=== PATIENT | female | born 1965 | race Hispanic/Latino ===

== ENCOUNTER 2017-10-20 01:52 | Emergency (ER) | payer OTHER ==
--- NOTE | 2017-10-20 02:19 | EDPHYS ---
Physician Documentation [facility] Name: Yesy Elder Age: 52 yrs Sex: Female : 1965 Arrival Date: 10/20/2017 Time: 01:56 Bed 15 Private MD: ED Physician Talib Bustillos HPI: 10/20 02:12 This 52 yrs old Female presents to ER via Ambulatory with complaints of pkl Allergic Reaction. 02:12 The patient's rash thought to be caused by an unknown cause. The rash is located on the pkl left upper posterior thigh. The rash can be described as patchy, vesicular. Onset: The symptoms/episode began/occurred 3 day(s) ago. Associated signs and symptoms: Pertinent positives: itching. Historical: - Allergies: 02:05 Codeine; aa1 - Home Meds: 02:05 Lisinopril Oral [Active]; aa1 - PMHx: 02:05 Hypertension; aa1 - PSHx: 02:05 Hysterectomy; Hernia repair; Cholecystectomy; aa1 - Immunization history:: Flu vaccine is not up to date. - Social history:: Smoking status: Patient/guardian denies using tobacco. ROS: 02:12 Eyes: Negative for injury, pain, redness, and discharge, ENT: Negative for injury, pkl pain, and discharge, Neck: Negative for injury, pain, and swelling, Cardiovascular: Negative for chest pain, palpitations, and edema, Respiratory: Negative for shortness of breath, cough, wheezing, and pleuritic chest pain, Abdomen/GI: Negative for abdominal pain, nausea, vomiting, diarrhea, and constipation, Back: Negative for injury and pain, : Negative for injury, bleeding, discharge, and swelling, MS/Extremity: Negative for injury and deformity. 02:12 Skin: Positive for rash, of the left upper posterior thigh. 02:12 Neuro: Negative for altered mental status. Exam: 02:12 Head/Face: Normocephalic, atraumatic. Eyes: Pupils equal round and reactive to light, pkl extra-ocular motions intact. Lids and lashes normal. Conjunctiva and sclera are non-icteric and not injected. Cornea within normal limits. Periorbital areas with no swelling, redness, or edema. ENT: Nares patent. No nasal discharge, no septal abnormalities noted. Tympanic membranes are normal and external auditory canals are clear. Oropharynx with no redness, swelling, or masses, exudates, or evidence of obstruction, uvula midline. Mucous membranes moist. Neck: Trachea midline, no thyromegaly or masses palpated, and no cervical lymphadenopathy. Supple, full range of motion without nuchal rigidity, or vertebral point tenderness. No Meningismus. Chest/axilla: Normal chest wall appearance and motion. Nontender with no deformity. No lesions are appreciated. Cardiovascular: Regular rate and rhythm with a normal S1 and S2. No gallops, murmurs, or rubs. Normal PMI, no JVD. No pulse deficits. Respiratory: Lungs have equal breath sounds bilaterally, clear to auscultation and percussion. No rales, rhonchi or wheezes noted. No increased work of breathing, no retractions or nasal flaring. Abdomen/GI: Soft, non-tender, with normal bowel sounds. No distension or tympany. No guarding or rebound. No evidence of tenderness throughout. Back: No spinal tenderness. No costovertebral tenderness. Full range of motion. MS/ Extremity: Pulses equal, no cyanosis. Neurovascular intact. Full, normal range of motion. Neuro: Awake and alert, GCS 15, oriented to person, place, time, and situation. Cranial nerves II-XII grossly intact. Motor strength 5/5 in all extremities. Sensory grossly intact. Cerebellar exam normal. Normal gait. 02:12 Skin: rash can be described as vesicular, on the left upper posterior thigh. Vital Signs: 02:05 BP 193 / 84; Pulse 67; Resp 16; Temp 98.1; Pulse Ox 100% on R/A; Weight 61.23 kg; aa1 Height 5 ft. 0 in. (152.40 cm); Pain 0/10; 02:07 BP 170 / 77; kb1 02:05 Body Mass Index 26.37 (61.23 kg, 152.40 cm) aa1 MDM: 01:57 Patient medically screened. pkl 02:12 Data reviewed: vital signs, nurses notes. pkl Administered Medications: 02:29 Drug: ZoviRAX 800 mg Route: PO; kb1 02:29 Follow up: Response: Medication administered at discharge. kb1 Disposition: 10/20/17 02:18 Discharged to Home. Impression: Rash left upper posterior thigh. Possible herpes zoster. - Condition is Stable. - Prescriptions for Zovirax 800 mg Oral Tablet - take 1 tablet by ORAL route 4 times per day for 5 days; 20 tablet. - Work release form, Medication Reconciliation Form, Thank You Letter, Antibiotic Education, Prescription Opioid Use form. - Follow up: Private Physician; When: 2 - 3 days; Reason: Re-evaluation by your physician. - Problem is new. - Symptoms are unchanged. Signatures: Lillian Durand RN RN aa1 Talib Bustillos MD MD pkl Zabrina Gallegos RN RN kb1
--- NOTE | 2017-10-20 02:19 | ER ---
Nurse's Notes [facility] Name: Yesy Elder Age: 52 yrs Sex: Female : 1965 Arrival Date: 10/20/2017 Time: 01:56 Bed 15 Private MD: Diagnosis: Rash left upper posterior thigh. Possible herpes zoster Presentation: 10/20 02:04 Presenting complaint: Patient states: rash to back of L leg and itching all over. aa1 Transition of care: patient was not received from another setting of care. Onset: The symptoms/episode began/occurred acutely. Anaphylaxis evaluation, no signs or symptoms of anaphylaxis were noted. Onset of symptoms was October 19, 2017. Care prior to arrival: None. 02:04 Method Of Arrival: Ambulatory aa1 02:04 Acuity: JOSE 5 aa1 Triage Assessment: 02:05 General: Appears in no apparent distress. comfortable, Behavior is calm, cooperative, aa1 appropriate for age. Pain: Denies pain. Historical: - Allergies: 02:05 Codeine; aa1 - Home Meds: 02:05 Lisinopril Oral [Active]; aa1 - PMHx: 02:05 Hypertension; aa1 - PSHx: 02:05 Hysterectomy; Hernia repair; Cholecystectomy; aa1 - Immunization history:: Flu vaccine is not up to date. - Social history:: Smoking status: Patient/guardian denies using tobacco. Screenin:08 Abuse screen: Denies threats or abuse. Nutritional screening: No deficits noted. kb1 Tuberculosis screening: No symptoms or risk factors identified. Fall Risk None identified. Assessment: 02:08 General: Appears in no apparent distress. Behavior is calm, cooperative. Neuro: Level kb1 of Consciousness is awake, alert, obeys commands, Oriented to person, place, time, situation. Cardiovascular: Patient's skin is warm and dry. Respiratory: Airway is patent Respiratory effort is even, unlabored, Respiratory pattern is regular, symmetrical, Breath sounds are clear. GI: No signs and/or symptoms were reported involving the gastrointestinal system. : No signs and/or symptoms were reported regarding the genitourinary system. Vital Signs: 02:05 BP 193 / 84; Pulse 67; Resp 16; Temp 98.1; Pulse Ox 100% on R/A; Weight 61.23 kg; aa1 Height 5 ft. 0 in. (152.40 cm); Pain 0/10; 02:07 BP 170 / 77; kb1 02:05 Body Mass Index 26.37 (61.23 kg, 152.40 cm) aa1 ED Course: 01:56 Patient arrived in ED. al2 01:57 Talib Bustillos MD is Attending Physician. pkl 01:58 Zabrina Gallegos, RN is Primary Nurse. kb1 02:05 Triage completed. aa1 02:05 Arm band placed on right wrist. Patient placed in an exam room, on a stretcher. aa1 02:08 Patient has correct armband on for positive identification. Call light in reach. Side kb1 rails up X 1. 02:08 No provider procedures requiring assistance completed. Patient did not have IV access kb1 during this emergency room visit. Administered Medications: 02:29 Drug: ZoviRAX 800 mg Route: PO; kb1 02:29 Follow up: Response: Medication administered at discharge. kb1 Outcome: 02:18 Discharge ordered by . pkl 02:28 Discharged to home ambulatory. kb1 02:28 Condition: stable 02:28 Discharge instructions given to patient, Instructed on discharge instructions, follow up and referral plans. medication usage, Demonstrated understanding of instructions, follow-up care, medications, Prescriptions given X 1. 02:31 Patient left the ED. kb1 Signatures: Lillian Durand RN RN aa1 Talib Bustillos MD MD pk Aurea Bower al2 Zabrina Gallegos RN RN kb1
[2017-10-20 02:36] VITALS: BP 193/84; TEMP 98.1; O2SAT 100
[2017-10-20] MEDS ORDERED: ACYCLOVIR 400 MG TABLET ONE (02:37)
== END 2017-10-20 02:31 | disposition home or self-care (01) ==
LOC: ER 01:52
DX: R21 Rash and other nonspecific skin eruption (principal); I10 Essential (primary) hypertension; Z88.5 Allergy status to narcotic agent
CPT/HCPCS: 99283

== ENCOUNTER 2019-07-01 20:17 | Emergency (ER) | payer OTHER ==
[2019-07-01 21:34] LABS: Urine Blood 2+ (NEG); Urine Glucose NEGATIVE (NEG); Urine Protein NEGATIVE (NEG); Urine Specific Gravity 1.025 (1.005-1.030); Urine pH 5.5 (5.0-7.0)
[2019-07-01] MEDS ORDERED: NA CHLORIDE 0.9% 1,000 ML ONE (21:55)
[2019-07-01] MEDS ORDERED: ONDANSETRON 4 MG/2 ML VIAL ONE (21:55)
[2019-07-01 22:30] LABS: Absolute Lymphocytes (CBC) 1.5 K/uL (0.7-4.9); Basophils % 0.4 % (0-1.3); Hematocrit 40.8 % (36.0-45.0); Lymphocytes % 16.4 % (15.3-44.8); MPV 9.2 fL (7.6-11.3); RBC Red Blood Cell Count 4.51 M/uL (3.86-4.86)
[2019-07-01 22:56] LABS: ALT/SGPT 44 U/L (12-78); AST/SGOT 26 U/L (15-37); Albumin 3.8 g/dL (3.4-5.0); Alkaline Phosphatase 106 U/L (45-117); BUN Blood Urea Nitrogen 21 mg/dL (7-18); Bicarbonate 30 mmol/L (21-32); Bilirubin Direct < 0.1 mg/dL (0-0.2); Bilirubin Total 0.4 mg/dL (0.2-1.0); Glucose Level 97 mg/dL (74-106); Lipase 74 U/L (73-393); Potassium 3.2 mmol/L (3.5-5.1); Protein, Total 7.9 g/dL (6.4-8.2); Sodium Level 140 mmol/L (136-145)
--- NOTE | 2019-07-01 23:37 | EDPHYS ---
Physician Documentation [facility] Name: Yesy Elder Age: 54 yrs Sex: Female : 1965 Arrival Date: 07/01/2019 Time: 20:19 Bed 25 Private MD: ED Physician Zaid Abarca HPI: 07/01 21:49 This 54 yrs old Female presents to ER via Ambulatory with complaints of choco Vomiting. 21:49 The patient presents to the emergency department with nausea, vomiting, diarrhea. choco Onset: The symptoms/episode began/occurred 3 day(s) ago. Possible causes: unknown. The symptoms are aggravated by nothing. The symptoms are alleviated by nothing. Associated signs and symptoms: The patient has no apparent associated signs or symptoms. Severity of symptoms: At their worst the symptoms were mild in the emergency department the symptoms are unchanged. The patient has not experienced similar symptoms in the past. 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 - Social history:: Smoking status: Patient/guardian denies using tobacco. - Ebola Screening: : Patient denies exposure to infectious person Patient denies travel to an Ebola-affected area in the 21 days before illness onset. - Family history:: not pertinent. ROS: 21:49 Constitutional: Negative for fever, chills, and weight loss, Eyes: Negative for injury, choco pain, redness, and discharge, ENT: Negative for injury, pain, and discharge, Neck: Negative for injury, pain, and swelling, Cardiovascular: Negative for chest pain, palpitations, and edema, Respiratory: Negative for shortness of breath, cough, wheezing, and pleuritic chest pain, : Negative for injury, bleeding, discharge, and swelling, MS/Extremity: Negative for injury and deformity, Skin: Negative for injury, rash, and discoloration, Neuro: Negative for headache, weakness, numbness, tingling, and seizure, Psych: Negative for depression, anxiety, suicide ideation, homicidal ideation, and hallucinations, Allergy/Immunology: Negative for hives, rash, and allergies, Endocrine: Negative for neck swelling, polydipsia, polyuria, polyphagia, and marked weight changes, Hematologic/Lymphatic: Negative for swollen nodes, abnormal bleeding, and unusual bruising. 21:49 Abdomen/GI: Positive for nausea and vomiting, nausea, vomiting, and diarrhea, nausea, vomiting, diarrhea. 21:49 Back: Positive for pain at rest, of the lumbar area. Exam: 21:49 Constitutional: This is a well developed, well nourished patient who is awake, alert, choco and in no acute distress. Head/Face: Normocephalic, atraumatic. Eyes: Pupils equal round and reactive to light, extra-ocular motions intact. Lids and lashes normal. Conjunctiva and sclera are non-icteric and not injected. Cornea within normal limits. Periorbital areas with no swelling, redness, or edema. ENT: Nares patent. No nasal discharge, no septal abnormalities noted. Tympanic membranes are normal and external auditory canals are clear. Oropharynx with no redness, swelling, or masses, exudates, or evidence of obstruction, uvula midline. Mucous membranes moist. Neck: Trachea midline, no thyromegaly or masses palpated, and no cervical lymphadenopathy. Supple, full range of motion without nuchal rigidity, or vertebral point tenderness. No Meningismus. Chest/axilla: Normal chest wall appearance and motion. Nontender with no deformity. No lesions are appreciated. Cardiovascular: Regular rate and rhythm with a normal S1 and S2. No gallops, murmurs, or rubs. Normal PMI, no JVD. No pulse deficits. Respiratory: Lungs have equal breath sounds bilaterally, clear to auscultation and percussion. No rales, rhonchi or wheezes noted. No increased work of breathing, no retractions or nasal flaring. Abdomen/GI: Soft, non-tender, with normal bowel sounds. No distension or tympany. No guarding or rebound. No evidence of tenderness throughout. Skin: Warm, dry with normal turgor. Normal color with no rashes, no lesions, and no evidence of cellulitis. MS/ Extremity: Pulses equal, no cyanosis. Neurovascular intact. Full, normal range of motion. Neuro: Awake and alert, GCS 15, oriented to person, place, time, and situation. Cranial nerves II-XII grossly intact. Motor strength 5/5 in all extremities. Sensory grossly intact. Cerebellar exam normal. Normal gait. Psych: Awake, alert, with orientation to person, place and time. Behavior, mood, and affect are within normal limits. 21:49 Back: pain, that is very mild, ROM is normal, normal spinal alignment noted, CVA tenderness, is absent, muscle spasm, is not present. Vital Signs: 20:23 BP 152 / 88; Pulse 76; Resp 18; Temp 97.2; Pulse Ox 97% on R/A; Weight 63.5 kg; Height aa1 5 ft. 0 in. (152.40 cm); Pain 7/10; 22:28 BP 141 / 82; Pulse 64; Resp 18; Pulse Ox 95% on R/A; aj1 23:10 BP 131 / 75; Pulse 68; Resp 18; Pulse Ox 100% on R/A; aj1 20:23 Body Mass Index 27.34 (63.50 kg, 152.40 cm) aa1 MDM: 21:06 Patient medically screened. [facility] 21:23 Patient medically screened. [facility] 21:49 Data reviewed: vital signs, nurses notes, lab test result(s). [facility] 07/01 21:30 Order name: Urine Dipstick--Ancillary (enter results); Complete Time: 21:48 [facility] 07/01 21:30 Order name: Flu; Complete Time: 23:23 [facility] 07/01 21:49 Order name: Basic Metabolic Panel; Complete Time: 23:23 [facility] 07/01 21:49 Order name: CBC with Diff; Complete Time: 23:23 [facility] 07/01 21:49 Order name: Creatinine for Radiology; Complete Time: 23:23 [facility] 07/01 21:49 Order name: Hepatic Function; Complete Time: 23:23 [facility] 07/01 21:49 Order name: Lipase; Complete Time: 23:23 [facility] 07/01 21:49 Order name: IV Saline Lock; Complete Time: 22:17 [facility] 07/01 21:49 Order name: Labs collected and sent; Complete Time: 22:17 [facility] 07/01 21:49 Order name: EKG; Complete Time: 21:50 [facility] 07/01 21:49 Order name: EKG - Nurse/Tech; Complete Time: 22:08 [facility] Administered Medications: 22:17 Drug: Zofran 4 mg Route: IVP; Site: left antecubital; aj1 23:56 Follow up: Response: No adverse reaction aj1 22:18 Drug: NS 0.9% 1000 ml Route: IV; Rate: 1 bolus; Site: left antecubital; aj1 23:56 Follow up: IV Status: Completed infusion; IV Intake: 1000ml aj1 23:56 Drug: Potassium Effervescent Tablet 25 mEq Route: PO; aj1 23:57 Follow up: Response: No adverse reaction aj Disposition: 07/01/19 23:36 Discharged to Home. Impression: Vomiting, Diarrhea, unspecified, Low back pain, Hypokalemia. - Condition is Stable. - Discharge Instructions: Food Choices to Help Relieve Diarrhea, Adult, Back Pain, Adult, Diarrhea, Adult, Potassium Content of Foods, Musculoskeletal Pain, Nausea and Vomiting, Adult, Nausea and Vomiting, Adult, [id number], Back Pain, Adult, Qjpw-xx-Mgha, Diarrhea, Adult, Mlye-ew-Cbbb, Hypokalemia. - Prescriptions for Bentyl 20 mg Oral Tablet - take 1 tablet by ORAL route every 6 hours As needed; 20 tablet. Pepcid 20 mg Oral Tablet - take 1 tablet by ORAL route every 12 hours for 10 days; 20 tablet. Zofran 4 mg Oral Tablet - take 1 tablet by ORAL route every 12 hours As needed; 20 tablet. - Medication Reconciliation Form, Thank You Letter, Antibiotic Education, Prescription Opioid Use, Work release form form. - Follow up: Private Physician; When: As needed; Reason: Recheck today's complaints, Re-evaluation by your physician. - Problem is new. - Symptoms have improved. Signatures: Dispatcher [employer] [facility] Meri Medina RN RN aj1 Lillian Rocha RN RN aa1 Zaid Abarca MD MD cha Corrections: (The following items were deleted from the chart) 23:58 23:36 07/01/2019 23:36 Discharged to Home. Impression: Vomiting; Diarrhea, unspecified; aj1 Low back pain; Hypokalemia. Condition is Stable. Discharge Instructions: Food Choices to Help Relieve Diarrhea, Adult, Back Pain, Adult, Diarrhea, Adult, Musculoskeletal Pain, Nausea and Vomiting, Adult, Nausea and Vomiting, Adult, Xhhd-[id number], Back Pain, Adult, Robp-[id number], Diarrhea, Adult, Mvjt-le-Wldj. Prescriptions for Bentyl 20 mg Oral Tablet - take 1 tablet by ORAL route every 6 hours As needed; 20 tablet, Pepcid 20 mg Oral Tablet - take 1 tablet by ORAL route every 12 hours for 10 days; 20 tablet, Zofran 4 mg Oral Tablet - take 1 tablet by ORAL route every 12 hours As needed; 20 tablet. and Forms are Medication Reconciliation Form, Thank You Letter, Antibiotic Education, Prescription Opioid Use. Follow up: Private Physician; When: As needed; Reason: Recheck today's complaints, Re-evaluation by your physician. Problem is new. Symptoms have improved. choco
--- NOTE | 2019-07-01 23:37 | ER ---
Nurse's Notes [facility] Name: Yesy Elder Age: 54 yrs Sex: Female : 1965 Arrival Date: 07/01/2019 Time: 20:19 Bed 25 Private MD: Diagnosis: Vomiting;Diarrhea, unspecified;Low back pain;Hypokalemia Presentation: 07/01 20:22 Presenting complaint: Patient states: V/D x 3 days and also reports low back pain. aa1 Transition of care: patient was not received from another setting of care. Onset of symptoms was June 28, 2019. Risk Assessment: Do you want to hurt yourself or someone else? Patient reports no desire to harm self or others. Initial Sepsis Screen: Does the patient meet any 2 criteria? No. Patient's initial sepsis screen is negative. Does the patient have a suspected source of infection? No. Patient's initial sepsis screen is negative. Care prior to arrival: None. 20:22 Method Of Arrival: Ambulatory aa1 20:22 Acuity: JOSE 3 aa1 Triage Assessment: 20:23 General: Appears in no apparent distress. comfortable, Behavior is calm, cooperative, aa1 appropriate for age. 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 - Social history:: Smoking status: Patient/guardian denies using tobacco. - Ebola Screening: : Patient denies exposure to infectious person Patient denies travel to an Ebola-affected area in the 21 days before illness onset. - Family history:: not pertinent. Screenin:25 Abuse screen: Denies threats or abuse. Denies injuries from another. Nutritional aj1 screening: No deficits noted. Tuberculosis screening: No symptoms or risk factors identified. 23:57 Fall Risk None identified. aj1 Assessment: 21:25 General: Appears in no apparent distress. comfortable, Behavior is calm, cooperative, aj1 appropriate for age. Pain: Complains of pain in lumbar area Pain does not radiate. Neuro: Level of Consciousness is awake, alert, obeys commands, Oriented to person, place, time, situation. Cardiovascular: Patient's skin is warm and dry. Respiratory: Airway is patent Respiratory effort is even, unlabored, Respiratory pattern is regular, symmetrical. GI: Abdomen is non-distended, Bowel sounds present X 4 quads. Abd is soft and non tender X 4 quads. Reports diarrhea, nausea, vomiting. : No signs and/or symptoms were reported regarding the genitourinary system. EENT: No signs and/or symptoms were reported regarding the EENT system. Derm: No signs and/or symptoms reported regarding the dermatologic system. Skin is pink, warm \T\ dry. normal. Musculoskeletal: No signs and/or symptoms reported regarding the musculoskeletal system. Circulation, motion, and sensation intact. 22:28 Reassessment: Patient appears in no apparent distress at this time. No changes from aj1 previously documented assessment. Patient and/or family updated on plan of care and expected duration. Pain level reassessed. Patient is alert, oriented x 3, equal unlabored respirations, skin warm/dry/pink. 23:10 Reassessment: Patient appears in no apparent distress at this time. No changes from aj1 previously documented assessment. Patient and/or family updated on plan of care and expected duration. Pain level reassessed. Patient is alert, oriented x 3, equal unlabored respirations, skin warm/dry/pink. Vital Signs: 20:23 BP 152 / 88; Pulse 76; Resp 18; Temp 97.2; Pulse Ox 97% on R/A; Weight 63.5 kg; Height aa1 5 ft. 0 in. (152.40 cm); Pain 7/10; 22:28 BP 141 / 82; Pulse 64; Resp 18; Pulse Ox 95% on R/A; aj1 23:10 BP 131 / 75; Pulse 68; Resp 18; Pulse Ox 100% on R/A; aj1 20:23 Body Mass Index 27.34 (63.50 kg, 152.40 cm) aa1 ED Course: 20:19 Patient arrived in ED. as 20:23 Triage completed. aa1 20:23 Arm band placed on right wrist. Patient placed in waiting room, Patient notified of aa1 wait time. 21:00 Meri Medina RN is Primary Nurse. aj1 21:06 Zaid Abarca MD is Attending Physician. [facility] 21:25 Patient has correct armband on for positive identification. Bed in low position. Call aj1 light in reach. Side rails up X 1. 21:25 No provider procedures requiring assistance completed. aj1 22:09 EKG done, by ED staff, reviewed by Zaid Abarca MD. jp3 22:18 Inserted saline lock: 22 gauge in left antecubital area, using aseptic technique. Blood aj1 collected. 23:57 IV discontinued, intact, bleeding controlled, No redness/swelling at site. Pressure aj1 dressing applied. Administered Medications: 22:17 Drug: Zofran 4 mg Route: IVP; Site: left antecubital; aj1 23:56 Follow up: Response: No adverse reaction aj1 22:18 Drug: NS 0.9% 1000 ml Route: IV; Rate: 1 bolus; Site: left antecubital; aj1 23:56 Follow up: IV Status: Completed infusion; IV Intake: 1000ml aj1 23:56 Drug: Potassium Effervescent Tablet 25 mEq Route: PO; aj1 23:57 Follow up: Response: No adverse reaction aj1 Intake: 23:56 IV: 1000ml; Total: 1000ml. aj1 Outcome: 23:36 Discharge ordered by . [facility] 23:57 Discharged to home ambulatory. aj1 23:57 Condition: good 23:57 Discharge instructions given to patient, family, Instructed on discharge instructions, follow up and referral plans. medication usage, Demonstrated understanding of instructions, follow-up care, medications. 23:58 Patient left the ED. aj1 Signatures: Meri Medina RN RN aj1 Lillian Rocha RN RN aa1 Zaid Abarca MD MD cha Martinez, Amelia as Pisarski, Jacob jp3
[2019-07-01] MEDS ORDERED: POTASSIUM 25 MEQ EFFERV TAB ONE (23:41)
[2019-07-02 01:28] VITALS: TEMP 97.2
[2019-07-02 01:30] VITALS: BP 131/75; O2SAT 100
--- NOTE | 2019-07-02 08:57 | EKG ---
Test Date: 2019-07-01 Test Time: 22:06:03 [place]: SANDY MEASUREMENT RESULTS: Intervals: Rate: 60 UT: 142 QRSD: 84 QT: 388 QTc: 388 [place]: P: 36 UT: 142 QRS: 68 T: -26 INTERPRETIVE STATEMENTS: Normal sinus rhythm T wave abnormality, consider inferior ischemia T wave abnormality, consider anterolateral ischemia Abnormal ECG Compared to ECG 04/30/2016 06:38:44 Possible ischemia now present Sinus bradycardia no longer present T-wave abnormality still present Electronically Signed On 07-02-19 08:56:29 [employer] by Tyrel Cooper
== END 2019-07-01 23:58 | disposition home or self-care (01) ==
LOC: ER 20:17
DX: E87.6 Hypokalemia (principal); M54.5 Low back pain; R19.7 Diarrhea, unspecified; I10 Essential (primary) hypertension; Z88.5 Allergy status to narcotic agent
CPT/HCPCS: 96361; 93005; 85025; 80048; 36415; 80076; 81003; 83690; 87804 ×2; 96374; 99284; J7030; J2405

== ENCOUNTER 2019-09-27 20:32 | Emergency (ER) | payer OTHER ==
--- NOTE | 2019-09-27 21:16 | EDPHYS ---
Physician Documentation [facility] Name: Yesy Elder Age: 54 yrs Sex: Female : 1965 Arrival Date: 09/27/2019 Time: 20:35 Bed 13 Private MD: ED Physician Cayden Vergara HPI: 09/26 21:12 This 54 yrs old Female presents to ER via Ambulatory with complaints of jmm Allergic Reaction. 21:12 The patient presents with rash. Onset: The symptoms/episode began/occurred just prior jm to arrival. Associated signs and symptoms: Pertinent negatives: abdominal pain, Altered mental status fever, Syncope vomiting. Possible causes: This is a 54 year old female with a history of htn that presents to the ED with complaints of rash which developed after eating a buttito at work. 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 denies swelling to the throat. . 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 - Social history:: Smoking status: Patient denies any tobacco usage or history of. ROS: 21:12 Constitutional: Negative for fever, chills, and weight loss, Cardiovascular: Negative jmm for chest pain, palpitations, and edema, Respiratory: Negative for shortness of breath, cough, wheezing, and pleuritic chest pain. 21:12 Skin: Positive for rash. 21:12 All other systems are negative. Exam: 21:12 Constitutional: This is a well developed, well nourished patient who is awake, alert, jmm and in no acute distress. Head/Face: atraumatic. Eyes: EOMI, no conjunctival erythema appreciated ENT: Moist Mucus Membranes 21:12 Neck: Trachea midline, Supple Chest/axilla: Normal chest wall appearance and motion. Cardiovascular: Regular rate and rhythm. No edema appreciated Respiratory: Normal respirations, no respiratory distress appreciated Abdomen/GI: Non distended, soft Back: Normal ROM 21:12 ENT: no pharyngeal edema appreciated. 21:12 Skin: urticaria noted to the left arm and back. 21:12 Neuro: Orientation: is normal, Mentation: is normal, Memory: is normal. 21:12 Psych: Behavior/mood is pleasant, cooperative. Vital Signs: 20:59 BP 162 / 81; Pulse 52; Resp 16 S; Temp 97.8(O); Pulse Ox 100% on R/A; Weight 63.5 kg bb (R); Height 5 ft. 0 in. (152.40 cm) (R); Pain 0/10; 20:59 Body Mass Index 27.34 (63.50 kg, 152.40 cm) bb MDM: 21:08 Patient medically screened. [facility] 21:14 Data reviewed: vital signs, nurses notes. Counseling: I had a detailed discussion with [facility] the patient and/or guardian regarding: the historical points, exam findings, and any diagnostic results supporting the discharge/admit diagnosis, the need for outpatient follow up, to return to the emergency department if symptoms worsen or persist or if there are any questions or concerns that arise at home. ED course: PE findings and VS not consistent with anaphylaxis. Patient advised to follow up with pcp and otherwise given strict return precautions. patient understood and agrees with the plan of care. . Administered Medications: 21:27 Drug: Decadron 10 mg Route: IM; Site: right gluteus; 21:53 Follow up: Response: No adverse reaction 21:27 Drug: diphenhydrAMINE 50 mg Route: PO; 21:52 Follow up: Response: No adverse reaction 21:27 Drug: Pepcid 20 mg Route: PO; 21:52 Follow up: Response: No adverse reaction Disposition: 09/27 03:19 Co-signature as Attending Physician, Cayden Vergara MD. rn Disposition: 09/27/19 21:15 Discharged to Home. Impression: Urticaria, unspecified. - Condition is Stable. - Discharge Instructions: Hives. - Prescriptions for Hydroxyzine HCl 25 mg Oral Tablet - take 1 tablet by ORAL route every 6 hours As needed; 30 tablet. Prednisone 20 mg Oral Tablet - take 3 tablet by ORAL route once daily for 5 days; 15 tablet. - Medication Reconciliation Form, Thank You Letter, Antibiotic Education, Prescription Opioid Use form. - Follow up: Private Physician; When: 2 - 3 days; Reason: Recheck today's complaints, Continuance of care, Re-evaluation by your physician. Signatures: Yayo Thomson PA PA jmm Ballard, Brenda, SHIRA RN Cayden Tam MD MD rn Habalo, Winsy Corrections: (The following items were deleted from the chart) 09/26 21:53 21:15 09/27/2019 21:15 Discharged to Home. Impression: Urticaria, unspecified. Condition is Stable. Forms are Medication Reconciliation Form, Thank You Letter, Antibiotic Education, Prescription Opioid Use. Follow up: Private Physician; When: 2 - 3 days; Reason: Recheck today's complaints, Continuance of care, Re-evaluation by your physician. henry
--- NOTE | 2019-09-27 21:16 | ER ---
Nurse's Notes [facility] Name: Yesy Elder Age: 54 yrs Sex: Female : 1965 Arrival Date: 09/27/2019 Time: 20:35 Bed 13 Private MD: Diagnosis: Urticaria, unspecified Presentation: 09/26 20:59 Chief complaint: Patient states: she thinks she is having an allergic reaction she is bb itching all over since approx 1730 does not have any idea of what caused it today. Coronavirus screen: The patient has NOT traveled to [place] in the past 14 days. Proceed with normal triage procedures. Ebola Screen: No symptoms or risks identified at this time. Onset: The symptoms/episode began/occurred acutely. Anaphylaxis evaluation, no signs or symptoms of anaphylaxis were noted. Initial Sepsis Screen: Does the patient meet any 2 criteria? No. Patient's initial sepsis screen is negative. Does the patient have a suspected source of infection? No. Patient's initial sepsis screen is negative. Risk Assessment: Do you want to hurt yourself or someone else? Patient reports no desire to harm self or others. Onset of symptoms was September 27, 2019. 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 - Social history:: Smoking status: Patient denies any tobacco usage or history of. Screenin:15 Abuse screen: Denies threats or abuse. Denies injuries from another. Nutritional wh screening: No deficits noted. Tuberculosis screening: No symptoms or risk factors identified. Fall Risk None identified. Assessment: 21:15 General: Appears in no apparent distress. Behavior is calm, cooperative, appropriate wh for age. Pain: Denies pain. Neuro: Level of Consciousness is awake, alert, obeys commands, Oriented to person, place, time, situation, Appropriate for age. Cardiovascular: Heart tones S1 S2. Respiratory: Airway is patent Respiratory effort is even, unlabored, Respiratory pattern is regular, symmetrical, Breath sounds are clear bilaterally. GI: Abdomen is flat, non-distended. : No signs and/or symptoms were reported regarding the genitourinary system. EENT: No signs and/or symptoms were reported regarding the EENT system. Derm: Rash noted that is itchy. Musculoskeletal: Circulation, motion, and sensation intact. Vital Signs: 20:59 BP 162 / 81; Pulse 52; Resp 16 S; Temp 97.8(O); Pulse Ox 100% on R/A; Weight 63.5 kg bb (R); Height 5 ft. 0 in. (152.40 cm) (R); Pain 0/10; 20:59 Body Mass Index 27.34 (63.50 kg, 152.40 cm) ED Course: 20:35 Patient arrived in ED. [id number] 21:02 Triage completed. 21:02 Arm band placed on Patient placed in an exam room, on a stretcher. Family accompanied patient. 21:03 Yayo Thomson PA is PHCP. [facility] 21:03 Cayden Vergara MD is Attending Physician. [facility] 21:15 Scotty Torres is Primary Nurse. 21:15 Patient has correct armband on for positive identification. Bed in low position. Call light in reach. Side rails up X 1. Pulse ox on. NIBP on. 21:51 No provider procedures requiring assistance completed. Patient did not have IV access during this emergency room visit. Administered Medications: 21:27 Drug: Decadron 10 mg Route: IM; Site: right gluteus; 21:53 Follow up: Response: No adverse reaction 21:27 Drug: diphenhydrAMINE 50 mg Route: PO; 21:52 Follow up: Response: No adverse reaction 21:27 Drug: Pepcid 20 mg Route: PO; 21:52 Follow up: Response: No adverse reaction Outcome: 21:15 Discharge ordered by . [facility] 21:51 Discharged to home ambulatory, with family. 21:51 Condition: stable 21:51 Discharge instructions given to patient, family, Instructed on discharge instructions, follow up and referral plans. medication usage, POC Demonstrated understanding of instructions, follow-up care, medications, POC Prescriptions given X 2. 21:53 Patient left the ED. Signatures: Yayo Thomson PA PA jmm Ballard, Brenda, RN RN Scotty Allen Jessica [id number]
[2019-09-27] MEDS ORDERED: FAMOTIDINE 20 MG TAB ONE (21:26)
[2019-09-27] MEDS ORDERED: DIPHENHYDRAMINE 25 MG TAB/CAP ONE (21:26)
[2019-09-27] MEDS ORDERED: dexAMETHasone 4 MG/ML VIAL ONE (21:26)
[2019-09-28 00:58] VITALS: BP 162/81; TEMP 97.8; O2SAT 100
== END 2019-09-27 21:53 | disposition home or self-care (01) ==
LOC: ER 20:32
DX: L50.9 Urticaria, unspecified (principal); Z88.6 Allergy status to analgesic agent; Z88.0 Allergy status to penicillin
CPT/HCPCS: 96372; 99283